=== PATIENT | male | born 1975 | race American Indian/Alaskan Native ===

== ENCOUNTER 2018-10-23 10:38 | Emergency (ER) | payer SELFPAY ==
[2018-10-23 10:47] VITALS: BP 122/80
[2018-10-23] MEDS ORDERED: BENADRYL IV ONE (11:49)
[2018-10-23] MEDS ORDERED: DECADRON IV ONE (11:49)
[2018-10-23] MEDS ORDERED: PEPCID PO ONE (11:49)
--- NOTE | 2018-10-23 12:05 | Emergency Department Report ---
ED Shortness of Breath HPI - General Chief Complaint: Dyspnea/Respdistress Stated Complaint: SHORTNESS OF BREATH Time Seen by Provider: 10/23/18 11:48 Source: patient Mode of arrival: Ambulatory Limitations: No Limitations - History of Present Illness Initial Comments: 43-year-old male comes in stating that he was having shortness of breathing after starting taking his Bactrim for urinary tract infection. Patient complains of itchiness shortness of breath and sweating. Patient reports that he is on his second treatment for a urinary tract infection. Patient reports no chronic past medical history currently takes no medications on a daily basis and now appears that he has a sulfa reaction. MD Complaint: shortness of breath -: This morning Improves With: nothing - Related Data Previous Rx's Medication Instructions Recorded Last Taken Type Ciprofloxacin HCl [Ciprofloxacin 500 mg PO Q12HR #6 tab 10/23/18 Unknown Rx TAB] Famotidine [Pepcid] 20 mg PO ONCE #5 tablet 10/23/18 Unknown Rx diphenhydrAMINE [Benadryl CAP] 25 mg PO Q8HR PRN #15 capsule 10/23/18 Unknown Rx predniSONE [Deltasone] 50 mg PO QDAY 4 Days #4 tab 10/23/18 Unknown Rx Allergies Allergy/AdvReac Type Severity Reaction Status Date / Time No Known Allergies Allergy Unverified 10/23/18 10:41 ED Review of Systems ROS: Stated complaint: SHORTNESS OF BREATH Other details as noted in HPI Comment: All other systems reviewed and negative Skin: rash, pruritus ED Past Medical Hx - Past Medical History Previous Medical History?: No - Surgical History Past Surgical History?: No - Social History Smoking Status: Never Smoker Substance Use Type: Alcohol - Medications Home Medications: Home Medications Medication Instructions Recorded Confirmed Last Taken Type Ciprofloxacin HCl [Ciprofloxacin 500 mg PO Q12HR #6 tab 10/23/18 Unknown Rx TAB] Famotidine [Pepcid] 20 mg PO ONCE #5 tablet 10/23/18 Unknown Rx diphenhydrAMINE [Benadryl CAP] 25 mg PO Q8HR PRN #15 capsule 10/23/18 Unknown Rx predniSONE [Deltasone] 50 mg PO QDAY 4 Days #4 tab 10/23/18 Unknown Rx ED Physical Exam - General Limitations: No Limitations General appearance: alert, in no apparent distress - Eye Eye exam: Present: EOMI - ENT ENT exam: Present: mucous membranes moist - Neck Neck exam: Present: normal inspection - Respiratory Respiratory exam: Present: normal lung sounds bilaterally. Absent: respiratory distress - Cardiovascular Cardiovascular Exam: Present: regular rate, normal rhythm. Absent: systolic murmur, diastolic murmur, rubs, gallop - GI/Abdominal GI/Abdominal exam: Present: soft, normal bowel sounds. Absent: distended, tenderness, guarding - Extremities Exam Extremities exam: Present: normal inspection, full ROM - Back Exam Back exam: Present: normal inspection - Neurological Exam Neurological exam: Present: alert, oriented X3 - Psychiatric Psychiatric exam: Present: normal affect, normal mood - Expanded Skin Exam Expanded Type of lesion: Present: rash Distribution of rash: generalized Description of rash: Present: erythematous, papular, purpuic ED Course Vital Signs 10/23/18 10:46 Temperature 97.5 F L Pulse Rate 84 Respiratory 16 Rate Blood Pressure 122/80 O2 Sat by Pulse 98 Oximetry ED Medical Decision Making - Medical Decision Making 43-year-old -[place] male comes here to have an allergic reaction to sulfa drug Bactrim. Discussed the patient to discontinue the Bactrim. Patient given IV Benadryl IV dexamethasone and by mouth Pepcid. Discussed the patient discontinue Bactrim place him on Cipro to follow up with his primary care prov ider in the next 3-4 days. Patient verbalized understanding. Critical care attestation.: If time is entered above; I have spent that time in minutes in the direct care of this critically ill patient, excluding procedure time. ED Disposition Clinical Impression: Allergic reaction caused by a drug, UTI (urinary tract infection) Disposition: DC-01 TO HOME OR SELFCARE Is pt being admited?: No Does the pt Need Aspirin: No Condition: Stable Instructions: Antibiotic Medication Allergy (ED) Additional Instructions: Discontinue taking Bactrim start Cipro I have prescribed. Take steroids Benadryl and Pepcid as prescribed. Follow up with her primary care provider in the next 3-4 days if symptoms persist or gets worse. Prescriptions: diphenhydrAMINE [Benadryl CAP] 25 mg PO Q8HR PRN #15 capsule PRN Reason: Allergic Reaction Ciprofloxacin HCl [Ciprofloxacin TAB] 500 mg PO Q12HR #6 tab predniSONE [Deltasone] 50 mg PO QDAY 4 Days #4 tab Famotidine [Pepcid] 20 mg PO ONCE #5 tablet Referrals: LISA LIAO MD [Staff Physician] - 3-5 Days Forms: Work/School Release Form(ED), Accompanied Note
== END 2018-10-23 12:39 | disposition home or self-care (01) ==
LOC: ED 10:38
DX: T78.40XA Allergy, unspecified, initial encounter (principal); N39.0 Urinary tract infection, site not specified; X58.XXXA Exposure to other specified factors, initial encounter
CPT/HCPCS: J1100; J1200; 96374; 96375